=== PATIENT | male | born 1950 | race Two or more races ===

== ENCOUNTER 2017-06-26 11:43 | Emergency (ER) | payer MEDICARE, OTHER ==
[~2017-06-26] VITALS: Ht 162.6 cm; Wt 68.0 kg
--- NOTE | 2017-06-26 11:50 | NUR ---
SELF PRESENTS TO ER C/O RT 2ND DIGIT AND LEFT 3RD DIGIT FINGER LACERATION. A/OX 4. BREATHING EVEN AND UNLABORED. WOUND NO LONGER DRAINING OR BLEEDING AT THIS TIME. SAFETY AND COMFORT MEASURES IN PLACE. VITALS STABLE. AWAITING MD ORDERS.
[2017-06-26] MEDS ORDERED: LIDOCAINE HCL/PF 1% 30 ML SDV ONE (12:29)
[2017-06-26] MEDS ORDERED: LIDOCAINE HCL/PF 1% 30 ML VIAL TP ONE (12:30)
[2017-06-26] MEDS ORDERED: ACETAMINOPHEN ES 500 MG TABLET PO ONE (12:30)
[2017-06-26] MEDS ORDERED: TDAP [DIPH/PERTUSSIS/TET] 0.5 ML VIAL IM ONE (12:30)
--- NOTE | 2017-06-26 12:45 | NUR ---
PATIENT REFUSED TETANUS AND TYLENOL, ASKING TO GO HOME.
--- NOTE | 2017-06-26 13:25 | NUR ---
Patient discharged to home in stable condition. Written and verbal after care instructions given. Patient verbalizes understanding of instruction.
[2017-06-26 14:19] VITALS: BP 142/78
== END 2017-06-26 14:19 | disposition home or self-care (01) ==
LOC: ER 11:48
DX: S61.210A Laceration without foreign body of right index finger without damage to nail, initial encounter (principal); S61.213A Laceration without foreign body of left middle finger without damage to nail, initial encounter; F17.200 Nicotine dependence, unspecified, uncomplicated; F10.10 Alcohol abuse, uncomplicated; V86.99XA Unspecified occupant of other special all-terrain or other off-road motor vehicle injured in nontraffic accident, initial encounter; Y93.89 Activity, other specified; Y92.89 Other specified places as the place of occurrence of the external cause; Y99.8 Other external cause status
CPT/HCPCS: A4606; A6403; J3490; Z7610

== ENCOUNTER 2017-07-03 11:29 | Emergency (ER) | payer MEDICARE, OTHER ==
[~2017-07-03] VITALS: Ht 162.6 cm; Wt 68.0 kg
[2017-07-03 11:29] VITALS: BP 137/75
== END 2017-07-03 12:39 | disposition home or self-care (01) ==
LOC: ER 11:32
DX: S61.210D Laceration without foreign body of right index finger without damage to nail, subsequent encounter (principal); F10.10 Alcohol abuse, uncomplicated; F17.200 Nicotine dependence, unspecified, uncomplicated
CPT/HCPCS: 99283; A4606; A6402; Z7610